=== PATIENT | female | born 1965 | race Caucasian/White ===

== ENCOUNTER → 2021-12-25 10:48 | Outpatient (BNVA) | payer OTHER, SELFPAY | PROVIDERS: PCP Family Medicine; Visit Provider Internal Medicine Pulmonary Disease | DX: J45.909 Unspecified asthma, uncomplicated (principal) ==

== ENCOUNTER 2021-12-30 08:53 | Outpatient (REF) | payer OTHER, SELFPAY ==
[2021-12-30 10:13] LABS: MANUAL DIFF FLAG NO
[2021-12-30 10:40] LABS: Basophils Percent Auto 0.4 % (0-2); Eosinophils Absolute Auto 0.1 X10*3/uL (0.0-0.4); Eosinophils Percent Auto 1.6 % (0-4); Hematocrit 35.4 % (37.0-47.0); Hemoglobin 11.4 g/dl (12.0-16.0); Imm Gran Abs Auto 0.02 X10*3/uL (0.00-0.03); Imm Gran Pct Auto 0.4 % (0.0-0.4); Lymphocytes Absolute Auto 1.7 X10*3/uL (1.2-4.9); Lymphocytes Percent Auto 29.7 % (20-40); Mean Corpuscular HGB Conc 32.2 g/dl (31.0-35.0); Mean Corpuscular Hemoglobin 27.6 pg (27.0-33.0); Mean Corpuscular Volume 85.7 fL (80.0-98.0); Mean Platelet Volume 11.4 fL (9.4-12.3); Monocytes Absolute Auto 0.4 X10*3/uL (0.1-1.2); Monocytes Percent Auto 6.7 % (2-11); Neutrophils Absolute Auto 3.5 x10*3/uL (2.0-8.3); Neutrophils Percent Auto 61.2 % (45-73); Platelet Count 197 X10*3/uL (160-400); Red Blood Count 4.13 X10*6/uL (4.20-5.50); Red Cell Distribution Width 15.1 % (11.0-16.0); White Blood Count 5.6 X10*3/uL (4.8-10.8)
--- NOTE | 2021-12-30 17:27 | PFT_ITS ---
INDICATION: History of asthma. SPIROMETRY: FEV1 to FVC of 59% with an FEV1 of 2.04 L, which is 111% predicted and FVC of 3.47 L, which is 151% predicted. Postbronchodilator shows significant improvement of the FVC by 25% and of the FEV1 by 50%. To note, the [id number] decreased down to 32% predicted, suggesting that she has very significant asthma. She had a significant response to bronchodilators as well. Maximum voluntary ventilation 55% predicted. LUNG VOLUMES: Total lung capacity 127% predicted and residual volume 157% predicted. DIFFUSION CAPACITY: DLCO 91% predicted. COMPARISONS: None. INTERPRETATION: There is an obstructive ventilatory defect consistent with mild chronic obstructive pulmonary disease. The patient likely although has probably uncontrolled asthma and is not asthma chronic obstructive pulmonary disease overlap syndrome with history of smoking. In addition to that, she has significant small airways disease suggesting that her asthma is significant. The patient also has a moderate decrease in the maximum voluntary ventilation secondary to likely deconditioning and also worsening dynamic inspiratory capacity. In regard to her lung volumes, she has both significant air trapping and hyperinflation due to the obstructive airway disease. Diffusion capacity is within normal limits. The patient should be referred to Pulmonary for further evaluation. Clinical correlation warranted. MD LIZZ Garibay/KIMBERLY / [id number]
== END 2021-12-30 08:54 | disposition home or self-care (01) ==
LOC: HO.RESP 08:53
PROVIDERS: PCP Family Medicine; Visit Provider Internal Medicine Pulmonary Disease
DX: Z91.09 Other allergy status, other than to drugs and biological substances (principal); J45.909 Unspecified asthma, uncomplicated
CPT/HCPCS: 36415; 82785; 85025; 86003; 94060; 94727; 94729

== ENCOUNTER → 2022-01-13 11:02 | Outpatient (BNVA) | payer OTHER, SELFPAY | PROVIDERS: PCP Family Medicine; Visit Provider Internal Medicine Pulmonary Disease | DX: Z13.89 Encounter for screening for other disorder (principal) ==